=== PATIENT | male | born 1960 | race Caucasian/White ===

== ENCOUNTER 2017-04-25 20:36 | Emergency (ER) | payer OTHER ==
[~2017-04-25] VITALS: Ht 177.8 cm; Wt 90.7 kg
[~2017-04-25 20:36] MED LIST: HYDACE5 PO; MECL12.5 PO; PROM25 PO; RXHYDACE PO; RXOXYACE PO; TRAM50 PO; TRIA80TC TOP
[2017-04-25] MEDS ORDERED: Cleocin HCl150 MG PO (22:56)
== END 2017-04-25 23:15 | disposition home or self-care (01) ==
LOC: ER 20:36
DX: L73.9 Follicular disorder, unspecified (principal); L03.114 Cellulitis of left upper limb; F17.210 Nicotine dependence, cigarettes, uncomplicated; Z79.2 Long term (current) use of antibiotics
CPT/HCPCS: 99283

== ENCOUNTER 2017-04-27 18:41 | Emergency (ER) | payer OTHER ==
[~2017-04-27] VITALS: Ht 177.8 cm; Wt 88.5 kg
[~2017-04-27 18:41] MED LIST changes: +Cleocin HCl150 MG PO
== END 2017-04-27 20:19 | disposition home or self-care (01) ==
LOC: ER 18:41
DX: L03.114 Cellulitis of left upper limb (principal); Z79.2 Long term (current) use of antibiotics; F17.210 Nicotine dependence, cigarettes, uncomplicated
CPT/HCPCS: 10060; 99283